=== PATIENT | female | born 1980 | race African-American/Black ===

== ENCOUNTER 2018-01-10 04:24 | Emergency (ER) | payer MEDICAID ==
[2018-01-10] MEDS ORDERED: normal saline 1000ML IV soln IVB STA (06:27)
[2018-01-10] MEDS ORDERED: famotidine/PF 10 mg/ml inj IV ONE (06:30)
[2018-01-10] MEDS ORDERED: epiNEPHrine 1 mg/ml inj SQ ONE (06:30)
[2018-01-10] MEDS ORDERED: methylPREDNISolone sod succ 125mg/2ml vial IV ONE (06:30)
[2018-01-10 09:01] VITALS: BP 131/81
[2018-01-10] MEDS ORDERED: PRED20TA PO (09:42)
[2018-01-10] MEDS ORDERED: FAMO40TA73 PO (09:42)
== END 2018-01-10 10:00 | disposition home or self-care (01) ==
LOC: ER 04:25
DX: T78.49XA Other allergy, initial encounter (principal); I10 Essential (primary) hypertension; G89.29 Other chronic pain; Z88.0 Allergy status to penicillin; Y93.E9 Activity, other interior property and clothing maintenance
CPT/HCPCS: 96361; 96372; 96374; 96375; 99284; J0171; J2930; J3490; J7030

== ENCOUNTER 2019-06-08 21:00 | Emergency (ER) | payer MEDICAID, OTHER ==
[~2019-06-08] VITALS: Ht 170.2 cm; Wt 72.7 kg
[~2019-06-08 21:00] MED LIST: FAMO40TA73 PO
[2019-06-08 21:10] VITALS: BP 131/94
[2019-06-08] MEDS ORDERED: CLIN-96 PO (21:58)
[2019-06-08] MEDS ORDERED: clindamycin 150mg capsule PO ONE (22:00)
== END 2019-06-08 22:05 | disposition home or self-care (01) ==
LOC: ER 21:02
DX: K04.7 Periapical abscess without sinus (principal); I10 Essential (primary) hypertension; G89.29 Other chronic pain; F15.90 Other stimulant use, unspecified, uncomplicated; Z88.0 Allergy status to penicillin; Z79.899 Other long term (current) drug therapy
CPT/HCPCS: 99283

== ENCOUNTER 2019-12-28 15:54 | Emergency (ER) | payer MEDICAID, OTHER ==
[~2019-12-28] VITALS: Ht 170.2 cm; Wt 72.7 kg
[~2019-12-28 15:54] MED LIST changes: +CLIN-90 PO
--- NOTE | 2019-12-28 16:24 | NUR ---
laboratory scientist at bedside
[2019-12-28 17:11] LABS: ALBUMIN 1.7 G/DL (3.4-5.0); ALBUMIN/GLOBULIN RATIO 0.3 (1.1-1.5); ALKALINE PHOSPHATASE 120 IU/L (46-116); ANION GAP 10 (8-16); ASPARTATE AMINO TRANSFERASE 17 U/L (10-37); BILIRUBIN,TOTAL 0.2 MG/DL (0.1-1.0); BLOOD UREA NITROGEN 7 MG/DL (7-18); BUN/CREATININE RATIO 9.6 (6.6-38.0); CHLORIDE 104 MMOL/L (99-107); CREATININE 0.73 MG/DL (0.40-0.90); GLUCOSE 98 MG/DL (70-104); POTASSIUM 3.7 MMOL/L (3.5-5.1); SODIUM 138 MMOL/L (135-145); TOTAL CARBON DIOXIDE 24.5 MMOL/L (24-32); eGFR > 90 ML/MIN
[2019-12-28 17:16] LABS: COLOR,URINE YELLOW (Yellow); GLUCOSE, URINE NEGATIVE (Neg); KETONES,URINE NEGATIVE (Neg); LEUKOCYTE ESTERASE ,URINE NEGATIVE (Neg); NITRITES, URINE NEGATIVE (Neg); OCCULT BLOOD,URINE NEGATIVE (Neg); PROTEIN,URINE TRACE mg/dl (Neg)
[2019-12-28 17:20] LABS: UA COLLECTION TYPE CLN CATCH MIDSTREAM
[2019-12-28 17:21] LABS: CLARITY,URINE SLIGHTLY CLOUDY (Clear)
[2019-12-28 17:22] LABS: BACTERIA,URINE 1+ /HPF (Neg); MUCUS STRANDS MANY /LPF (Neg); RBC,URINE NONE SEEN /HPF (0-2); SQUAMOUS EPITHELIAL CELL,UR MANY /LPF (FEW); WBC,URINE 0-4 /HPF (0-4)
[2019-12-28 17:27] LABS: URINE AMPHETAMINE SCREEN POSITIVE (Neg); URINE BARBITUATE SCREEN NEGATIVE (Neg); URINE BENZODIAZEPINES SCREEN NEGATIVE (Neg); URINE CANNABINOID SCREEN NEGATIVE (Neg); URINE COCAINE SCREEN NEGATIVE (Neg); URINE METHADONE SCREEN NEGATIVE (Neg); URINE OPIATE SCREEN POSITIVE (Neg); URINE PHENCYCLIDINE SCREEN NEGATIVE (Neg)
[2019-12-28 17:30] LABS: BASOPHILS % (AUTO) 0.3 % (0-1); EOSINOPHILS # (AUTO) 0.1 X10'3 (0-0.9); EOSINOPHILS % (AUTO) 1.3 % (0-6); LYMPHOCYTES # (AUTO) 1.1 X10'3 (1.1-4.8); MEAN CORPUSCULAR HEMOGLOBIN 17.7 PG (27.0-31.0); MEAN CORPUSCULAR HGB CONC 29.9 g/dL (33.0-36.5); MEAN CORPUSCULAR VOLUME 59.3 FL (78-98); MEAN PLATELET VOLUME 8.4 FL (7.4-10.4); MONOCYTES # (AUTO) 0.4 X10'3 (0-0.9); MONOCYTES % (AUTO) 5.8 % (2-12); NEUTROPHILS % (AUTO) 78.6 % (42-75); PLATELET COUNT 361 X10'3 (140-440); RED BLOOD COUNT 3.67 X10'6 (4.20-5.60); RED CELL DISTRIBUTION WIDTH 18.5 % (11.5-14.5); WHITE BLOOD COUNT 7.6 X10'3 (4.5-11.0)
[2019-12-28 17:36] LABS: ALANINE AMINOTRANSFERASE < 6 U/L (12-78); HEMATOCRIT 21.8 % (35.0-45.0); HEMOGLOBIN 6.5 g/dl (12.0-16.0)
[2019-12-28 17:37] LABS: BETA HCG,QUANTITATIVE 10212 mIU/ml
[2019-12-28 17:41] LABS: ANISOCYTOSIS 2+; PLATELET ESTIMATE NORMAL; POIKILOCYTOSIS 3+; POLYCHROMASIA 1+; TOTAL CELLS COUNTED 100
[2019-12-28 17:42] LABS: HYPOCHROMASIA 3+; LARGE PLATELETS FEW
[2019-12-28] MEDS ORDERED: NO HOME MEDS (19:08)
[2019-12-28 20:32] VITALS: BP 109/66
[2019-12-28 20:50] VITALS: BP 113/68
[2019-12-28 21:50] VITALS: BP 115/74
[2019-12-28 22:50] VITALS: BP 112/79
[2019-12-28 22:56] VITALS: BP 112/79
== END 2019-12-28 23:04 | disposition home or self-care (01) ==
LOC: ER 15:54
DX: O99.012 Anemia complicating pregnancy, second trimester (principal); D64.9 Anemia, unspecified; I10 Essential (primary) hypertension; G89.29 Other chronic pain; F15.10 Other stimulant abuse, uncomplicated; F11.90 Opioid use, unspecified, uncomplicated; Z88.0 Allergy status to penicillin; Z3A.24 24 weeks gestation of pregnancy; Z88.8 Allergy status to other drugs, medicaments and biological substances; Z79.899 Other long term (current) drug therapy
CPT/HCPCS: 36415; 36430; 76805; 80053; 80305; 81001; 84702; 85025; 86885; 86900; 86901; 86920; 99285; P9016; 99284

== ENCOUNTER 2020-11-03 15:26 | Emergency (ER) | payer MEDICAID, OTHER ==
[~2020-11-03] VITALS: Ht 170.2 cm; Wt 6.1 kg
[~2020-11-03 15:26] MED LIST changes: -CLIN-90 PO; -FAMO40TA73 PO; +NO HOME MEDS
[2020-11-03 15:33] VITALS: BP 117/106
[2020-11-03] MEDS ORDERED: CLIN150C2 PO (15:43)
[2020-11-03] MEDS ORDERED: L. R1CAP4 PO (15:43)
== END 2020-11-03 16:02 | disposition home or self-care (01) ==
LOC: ER 15:27
DX: K04.7 Periapical abscess without sinus (principal); I10 Essential (primary) hypertension; G89.29 Other chronic pain; F15.90 Other stimulant use, unspecified, uncomplicated; F11.90 Opioid use, unspecified, uncomplicated; Z88.0 Allergy status to penicillin; Z79.2 Long term (current) use of antibiotics; Z79.899 Other long term (current) drug therapy
CPT/HCPCS: 99283

== ENCOUNTER 2021-04-22 08:04 | Emergency (ER) | payer MEDICAID ==
[~2021-04-22] VITALS: Ht 170.2 cm; Wt 68.2 kg
[~2021-04-22 08:04] MED LIST changes: +L. R1CAP4 PO
[2021-04-22 08:11] VITALS: BP 121/84
== END 2021-04-22 11:39 | disposition home or self-care (01) ==
LOC: ER 08:05
DX: J06.9 Acute upper respiratory infection, unspecified (principal); Z20.822 Contact with and (suspected) exposure to COVID-19; I10 Essential (primary) hypertension; G89.29 Other chronic pain; F15.90 Other stimulant use, unspecified, uncomplicated; F11.90 Opioid use, unspecified, uncomplicated; Z88.0 Allergy status to penicillin; Z79.899 Other long term (current) drug therapy
CPT/HCPCS: 87635; 99283; C9803; 99281

== ENCOUNTER 2021-10-07 21:37 | Emergency (ER) | payer MEDICAID ==
[~2021-10-07] VITALS: Ht 170.2 cm; Wt 68.2 kg
[2021-10-07 21:43] VITALS: BP 161/81
[2021-10-07] MEDS ORDERED: ketorolac trometh. 30mg/ml inj. IM ONE (22:45)
[2021-10-07] MEDS ORDERED: IBUP-1984 PO (22:53)
== END 2021-10-07 23:22 | disposition home or self-care (01) ==
LOC: ER 21:38
DX: M79.672 Pain in left foot (principal); I10 Essential (primary) hypertension; G89.29 Other chronic pain; F15.90 Other stimulant use, unspecified, uncomplicated; F11.90 Opioid use, unspecified, uncomplicated; Z88.0 Allergy status to penicillin; Z79.899 Other long term (current) drug therapy
CPT/HCPCS: 29505; 73630; 96372; 99284; J1885

== ENCOUNTER 2021-10-16 12:10 | Emergency (ER) | payer MEDICAID ==
[~2021-10-16] VITALS: Ht 170.2 cm; Wt 70.5 kg
[2021-10-16 12:43] VITALS: BP 155/125
[2021-10-16] MEDS ORDERED: CLIN150C2 PO (13:13)
== END 2021-10-16 13:19 | disposition home or self-care (01) ==
LOC: ER 12:11
DX: K04.7 Periapical abscess without sinus (principal); R68.84 Jaw pain; I10 Essential (primary) hypertension; G89.29 Other chronic pain; F15.90 Other stimulant use, unspecified, uncomplicated; F11.90 Opioid use, unspecified, uncomplicated; Z88.0 Allergy status to penicillin; Z79.2 Long term (current) use of antibiotics; Z79.899 Other long term (current) drug therapy
CPT/HCPCS: 99283

== ENCOUNTER 2022-06-15 22:07 | Emergency (ER) | payer MEDICAID ==
[~2022-06-15] VITALS: Ht 170.2 cm; Wt 81.8 kg
[2022-06-15 22:21] VITALS: BP 142/95
[2022-06-15] MEDS ORDERED: proparacaine 0.5% ophthalmic drops 15ml EACHEYE ONE (23:30)
[2022-06-15] MEDS ORDERED: tobramycin/dexamethasone ophthalmic suspension EACHEYE ONE (23:40)
--- NOTE | 2022-06-15 23:54 | NUR ---
topical applied to both eyes
== END 2022-06-15 23:57 | disposition home or self-care (01) ==
LOC: ER 22:07
DX: H10.89 Other conjunctivitis (principal); I10 Essential (primary) hypertension; G89.29 Other chronic pain; M54.9 Dorsalgia, unspecified; F15.10 Other stimulant abuse, uncomplicated; F14.10 Cocaine abuse, uncomplicated; Z88.0 Allergy status to penicillin; Z79.899 Other long term (current) drug therapy
CPT/HCPCS: 99283

== ENCOUNTER 2023-03-08 00:17 | Emergency (ER) | payer MEDICAID ==
[~2023-03-08] VITALS: Ht 170.2 cm; Wt 81.8 kg
[2023-03-08 00:20] VITALS: BP 139/91
[2023-03-08] MEDS ORDERED: TETRAcaine 0.5% ophthalmic drops 15ml EACHEYE ONE (01:30)
[2023-03-08] MEDS ORDERED: POLOS EACHEYE (02:58)
[2023-03-08] MEDS: polymyxin B sulf/tmp ophth drops 10ml RIGHTEYE SCH ×2 (03:10→03:11)
== END 2023-03-08 03:19 | disposition home or self-care (01) ==
LOC: ER 00:18
DX: H10.9 Unspecified conjunctivitis (principal); I10 Essential (primary) hypertension; F15.20 Other stimulant dependence, uncomplicated; Z88.0 Allergy status to penicillin
CPT/HCPCS: 99283

== ENCOUNTER 2023-12-09 09:59 | Emergency (ER) | payer MEDICAID ==
[~2023-12-09] VITALS: Ht 170.2 cm; Wt 83.0 kg
[2023-12-09 10:45] LABS: URINE HCG NEGATIVE (NEG)
[2023-12-09 11:03] LABS: BILIRUBIN,URINE NEGATIVE (Neg); CLARITY,URINE CLOUDY (Clear); COLOR,URINE YELLOW (Yellow); GLUCOSE, URINE NEGATIVE (Neg); KETONES,URINE TRACE mg/dl (Neg); LEUKOCYTE ESTERASE ,URINE NEGATIVE (Neg); NITRITES, URINE NEGATIVE (Neg); OCCULT BLOOD,URINE NEGATIVE (Neg); PROTEIN,URINE 30 mg/dl (Neg); UROBILINOGEN,URINE 0.2 E.U/dL (0.2-1.0)
[2023-12-09 11:11] LABS: UA COLLECTION TYPE CLN CATCH MIDSTREAM
[2023-12-09 11:12] LABS: MUCUS STRANDS MANY /LPF (Neg); SQUAMOUS EPITHELIAL CELL,UR MANY /LPF (FEW)
[2023-12-09 11:14] LABS: BACTERIA,URINE 1+ /HPF (Neg); RBC,URINE 0-2 /HPF (0-2); TRANSITIONAL EPI CELLS,URINE FEW /HPF; WBC,URINE 0-4 /HPF (0-4)
[2023-12-09] MEDS ORDERED: ONDA4TAB12 PO (11:34)
[2023-12-09] MEDS: ondansetron 4mg rapidly disintigrating tab PO ONE (11:39)
[2023-12-09] MEDS: ketorolac trometh inj. 60 MG/2 ML VIAL IM ONE (11:40)
[2023-12-09 11:45] VITALS: BP 122/78; PULSE 97; RESP 16; TEMP 98.7; O2SAT 96
== END 2023-12-09 11:48 | disposition home or self-care (01) ==
LOC: ER 10:00
DX: R10.84 Generalized abdominal pain (principal); R11.2 Nausea with vomiting, unspecified; R19.7 Diarrhea, unspecified; I10 Essential (primary) hypertension; F15.90 Other stimulant use, unspecified, uncomplicated; F11.90 Opioid use, unspecified, uncomplicated; Z88.0 Allergy status to penicillin; Z79.899 Other long term (current) drug therapy
CPT/HCPCS: 81001; 81025; 96372; 99283; J1885

== ENCOUNTER 2024-09-26 15:08 | Emergency (ER) | payer MEDICAID, OTHER ==
[~2024-09-26] VITALS: Ht 170.2 cm; Wt 81.4 kg
[~2024-09-26 15:08] MED LIST changes: +ONDA-243 PO
[2024-09-26 16:34] LABS: STREP A SCREEN POSITIVE (Neg)
[2024-09-26] MEDS ORDERED: CEPH-585 PO (17:10)
[2024-09-26] MEDS: cephalexin 250mg capsule PO STA (17:24)
[2024-09-26 17:27] VITALS: BP 126/80; PULSE 80; RESP 14; TEMP 98.1; O2SAT 99
== END 2024-09-26 17:29 | disposition home or self-care (01) ==
LOC: ER 15:08
DX: J02.0 Streptococcal pharyngitis (principal); G89.29 Other chronic pain; I10 Essential (primary) hypertension; F15.90 Other stimulant use, unspecified, uncomplicated; Z88.0 Allergy status to penicillin; Z79.2 Long term (current) use of antibiotics; Z79.899 Other long term (current) drug therapy
CPT/HCPCS: 87880; 99283